=== PATIENT | male | born 1960 | race African-American/Black ===

== ENCOUNTER 2020-11-08 04:38 | Day surgery (SDC) | payer OTHER ==
[2020-11-05 16:33] VITALS: BMI 31.2
[~2020-11-08 04:38] MED LIST: ceFAZolin 2 GRAM PREMIX BAG IVPB ONE
[2020-11-08] MEDS ORDERED: DEXAMETHASONE SOD PHOSPHATE 4 MG/1 ML VIAL ONE (07:21)
[2020-11-08] MEDS ORDERED: MIDAZOLAM HCL 2 MG/2 ML SINGLE DOSE VIAL ONE (07:21)
[2020-11-08] MEDS ORDERED: LIDOCAINE HCL/PF 2% SDV 5ML VIAL ONE (07:21)
[2020-11-08] MEDS ORDERED: KETOROLAC TROMETHAMINE 30 MG/1 ML VIAL ONE (07:21)
[2020-11-08] MEDS ORDERED: PROPOFOL 20 ML ONE ×3 (07:22→08:30)
[2020-11-08] MEDS ORDERED: ceFAZolin 2 GRAM PREMIX BAG IVPB ONE (07:59)
[2020-11-08] MEDS ORDERED: ONDANSETRON 4 MG/2 ML VIAL IVPUSH PRN (08:46)
[2020-11-08] MEDS ORDERED: oxyCODONE HCL 5 MG TABLET PO PRN (08:46)
[2020-11-08] MEDS ORDERED: LACTATED RINGERS SOLUTION 1,000 ML IV SCH (09:00)
[2020-11-08] MEDS ORDERED: BACITRACIN 15 GM TUBE TOPICAL OINTMENT ONE (09:10)
[2020-11-08 14:38] VITALS: BP 162/90; PULSE 70; TEMP 97.8
== END 2020-11-08 14:15 | disposition home or self-care (01) ==
LOC: JASU-SURG 04:38
PROVIDERS: ATTEND Urology
PROC: 0V503ZZ Destruction of Prostate, Percutaneous Approach (ICD-10-PCS; principal; 2020-11-08 08:00)
DX: C61 Malignant neoplasm of prostate (principal)
CPT/HCPCS: 55873; C2618; 82962; 93005; 93010; 94760